=== PATIENT | male | born 1995 | race Caucasian/White ===

== ENCOUNTER 2022-07-18 18:53 | Emergency (ER) | payer OTHER, SELFPAY ==
[2022-07-18 18:57] VITALS: BP 153/82; PULSE 112; RESP 16; TEMP 36.6; O2SAT 99
--- NOTE | 2022-07-18 19:15 | ED.DENTAL ---
HPI - Dental/Oral General Chief complaint: Dental/Oral Stated complaint: tooth pain Time Seen by Provider: 07/18/22 19:15 Source: patient Mode of arrival: ambulatory Limitations: no limitations History of Present Illness HPI Narrative: 27-year-old male presents concern for right upper dental pain for 1 week. Reports pain got worse yesterday. Reports he can taste a foul taste in his mouth. He reports he has had ongoing problems with his teeth. He reports he gets frequent infections. He reports he does not have a dentist. He has Medicaid so has trouble getting into a dentist. He denies trouble swallowing. Reports feeling of general malaise. Complaint: tooth pain Related Data Allergies Allergy/AdvReac Type Severity Reaction Status Date / Time No Known Allergies Allergy Verified 07/18/22 18:59 Review of Systems Review of Systems: CONSTITUTIONAL: Reports malaise. Denies chills, sweats, or fever. EYES: Denies visual changes ENT: Denies rhinorrhea, congestion, sinus pain, otalgia or sore throat. Reports right upper dental pain CARDIOVASCULAR: Denies chest pain, palpitations RESPIRATORY: Denies cough or dyspnea. SKIN: Denies rash or itching. MUSCULOSKELETAL: Denies myalgia. NEUROLOGIC: Denies numbness, weakness, or headache. All systems reviewed & are unremarkable except as noted in HPI and below PMFSH Comments At time of signature, agree with nursing past medical, surgical, social and family history. There is no relevant family history pertinent to the presenting complaint Exam Narrative: GENERAL: Well-appearing, well-nourished, and in no acute distress. HEAD: Normocephalic, atraumatic. EYES: PERRLA, sclera clear ENT: Nares clear, no rhinorrhea or epistaxis. Mucous membranes moist. Oropharynx without erythema or lesions. Tonsils not enlarged and without exudate. Many missing teeth, broken teeth, caries. Erythema, mild edema surrounding tooth #3 without periapical abscess noted NECK: Supple. No lymphadenopathy. CHEST: No respiratory distress. Speaks in full sentences. HEART: Regular rate and rhythm. SKIN: Warm, dry, no visible rash. NEURO: Alert and oriented x3. PSYCH: Normal mood and affect Course Course Emergency Course: Patient is aware of diagnosis, understands and agrees to treatment plan. Anticipatory guidance given. Patient agrees to follow-up as directed and is aware of reasons to seek care at the emergency department. Portions of this record may have been created with voice recognition software Level of Care: Express Care Visit Vital Signs Vital signs: Vital Signs Temperature 97.9 F 07/18/22 18:57 Pulse Rate 112 H 07/18/22 18:57 Respiratory Rate 16 07/18/22 18:57 Blood Pressure 153/82 H 07/18/22 18:57 Pulse Oximetry 99 07/18/22 18:57 Oxygen Delivery Room Air 07/18/22 18:57 Temperature 97.9 F 07/18/22 18:57 Pulse Rate 112 H 07/18/22 18:57 Respiratory Rate 16 07/18/22 18:57 Blood Pressure 153/82 H 07/18/22 18:57 Pulse Oximetry 99 07/18/22 18:57 Oxygen Delivery Room Air 07/18/22 18:57 Reviewed. Procedures Nerve Block Nerve Block 1: Nerve block date: 07/18/22 Nerve block time: 19:15 Time out performed: Yes Local Anesthetic: lidocaine 1% Amount of anesthesia used (mL): 5 Side: right Intraoral Nerve Block: superior alveolar Procedure Successful: Yes Patient Tolerated Procedure: well Complications: none MDM - Dental/Oral MDM Narrative Medical decision making narrative: Patients pain and complaint coupled with physical findings are consistant with dentalgia. There are no focal signs of space occupying lesions that are compromising to the airway; no dysphagia, odynophagia, dysphonia, or dyspnea. No uvular deviation or soft palate edema. Patient is non-toxic appearing. The floor of the mouth is soft with no signs of Ken's Angina; no induration below mandible, no neck pain. Patient is w
[2022-07-18] MEDS: LIDOCAINE HCL 1% LOCAL INJ 20 ML VIAL 10 ML INFILTRATE (19:27)
[2022-07-18] MEDS: HYDROGEN PEROXIDE 3% TOPICAL SOLUTION 118 ML BOTTLE 20 ML IRRIGATION (19:27)
== END 2022-07-18 19:32 | disposition home or self-care (01) ==
PROVIDERS: Emergency Provider Nurse Practitioner
DX: K04.7 Periapical abscess without sinus (principal)
CPT/HCPCS: 64999; 99213; A9270; G0463

== ENCOUNTER 2024-06-26 15:57 | Emergency (ER) | payer OTHER, SELFPAY ==
--- NOTE | 2024-06-26 15:59 | ED.URI ---
HPI - URI/Sore Throat General Chief Complaint: Upper Respiratory Infection Stated Complaint: cough,sweats,bodyaches Time Seen by Provider: 06/26/24 15:59 Source: patient Mode of arrival: ambulatory Limitations: no limitations History of Present Illness HPI Narrative: Joe is a 28-year-old male who presents to the clinic today with complaints of generalized body aches and cough for 3-4 days. He relates he has also been feeling feverish, however, he has not checked his temperature. He denies any shortness of breath, wheezing, or sore throat. Related Data Allergies Allergy/AdvReac Type Severity Reaction Status Date / Time No Known Allergies Allergy Verified 06/26/24 16:02 Review of Systems Review of Systems: Pertinent positives per HPI. Patient denies any rash, headache, visual changes, dizziness, palpitations, nausea, vomiting, diarrhea, constipation, abdominal pain, or any urinary issues. PMFSH Comments At the time of my signature, I reviewed and agree with the nursing past medical, surgical, social, and family history. There is no relevant family history pertinent to the patient complaint. Exam Narrative: General: Well-developed, well nourished, in no apparent distress Head: Normocephalic, atraumatic Eyes: Pupils equally round and reactive to light bilaterally, EOM intact, sclera and conjunctive clear, no discharge, lids normal Neck: Supple, trachea midline Cardio: Regular rate and rhythm, s1 and s2 normal, no murmur appreciated. Resp: Clear to auscultation bilaterally, no rhonchi, rales, wheezing or rubs Course Course Emergency Course: Portions of this record may have been created with voice recognition software. Level of Care: Express Care Visit Vital Signs Vital signs: Vital Signs Temperature 37.3 C 06/26/24 16:08 Pulse Rate 103 H 06/26/24 16:08 Respiratory Rate 16 06/26/24 16:08 Blood Pressure 120/70 06/26/24 16:08 Pulse Oximetry 99 06/26/24 16:08 Oxygen Delivery Room Air 06/26/24 16:08 Temperature 37.3 C 06/26/24 16:08 Pulse Rate 103 H 06/26/24 16:08 Respiratory Rate 16 06/26/24 16:08 Blood Pressure 120/70 06/26/24 16:08 Pulse Oximetry 99 06/26/24 16:08 Oxygen Delivery Room Air 06/26/24 16:08 Vital signs reviewed MDM - URI/Sore Throat MDM Narrative Medical decision making narrative: At the time of visit patient is resting comfortably on the exam table. Patient appears to be nontoxic. Labs: COVID test was positive in the clinic today. Influenza testing was negative. Plan: I suspect patient has COVID. Supportive measures were discussed with the patient and they voiced understanding discharge instructions and agrees to treatment plan. Return precautions reviewed Differential Diagnosis Differential diagnosis: Likely upper respiratory infection, sinusitis, viral infection, influenza, pharyngitis and other (COVID) Lab Data Labs: Lab Results 06/26/24 Range/Units 16:10 POC Inf A,B Int Ctl Darlene Yes POC Influenza A Ag Negative POC Influenza B Ag Negative POC SARS CoV-2 Ag Positive (Negative) Discharge Plan Discharge Clinical Impression: COVID-19 Patient Disposition: Home, Self-Care Condition: Stable Instructions: Antibiotic Form, How to Recover from COVID-19 at Home (ED) Additional Instructions: COVID testing was positive in the clinic today. Influenza testing was negative. May take DayQuil/NyQuil for cold/flu symptoms-this does have Tylenol in it Increase fluids and stay well hydrated Tylenol/motrin for pain/fever Flonase and OTC antihistamines as directed Vicks vapor rub to open sinuses Sinus rinses for congestion Cepacol spray, cough drops, throat lozenges, warm tea with honey/lemon, gargle salt water to soothe throat BRAT diet for diarrhea Clear liquids x 24 hours then advance as tolerated for nausea/vomiting Go to the ED if you develop a worsening in your condition- h
[2024-06-26 16:08] VITALS: BP 120/70; PULSE 103; RESP 16; TEMP 37.3; O2SAT 99
[2024-06-26 16:25] LABS: EDINFLUASCREEN Negative; EDINFLUBSCREEN Negative
== END 2024-06-26 16:28 | disposition home or self-care (01) ==
PROVIDERS: Emergency Provider Nurse Practitioner Family
DX: U07.1 COVID-19 (principal)
CPT/HCPCS: 87426; 87804; 99213; G0463